=== PATIENT | female | born 1955 | race Two or more races ===

== ENCOUNTER 2019-04-21 19:41 | Inpatient (IN) | payer SELFPAY ==
[~2019-04-21] VITALS: Ht 157.5 cm; Wt 64.9 kg
[2019-04-21] MEDS ORDERED: SODIUM CHLORIDE 0.9% 1,000 ML IV ONE (21:42)
[2019-04-21 21:52] LABS: HEMATOCRIT. 26.6 % (36.0-48.0); HEMOGLOBIN. 8.9 g/dL (12.0-16.0); MEAN CORPUSCULAR HEMOGLOBIN 24.6 pg (28.0-32.0); MEAN CORPUSCULAR VOLUME 73.6 fL (81.0-99.0); MEAN PLATELET VOLUME 6.7 fl (7.4-10.4); PLATELET 294 x1000/uL (130-400); RED BLOOD CELL COUNT 3.62 mill/uL (4.2-5.4)
[2019-04-21 21:59] LABS: PROTHROMBIN TIME 10.1 sec (9.6-11.0)
[2019-04-21 22:15] LABS: CHLORIDE 99 mEq/L (98-107)
[2019-04-21] MEDS ORDERED: MORPHINE SULFATE 4 MG/ML CPJ (NOT FOR IM USE) IV STA (22:33)
[2019-04-21] MEDS ORDERED: ACETAMINOPHEN 325MG TABLET PO STA (22:33)
[2019-04-21] MEDS ORDERED: ONDANSETRON HCL 4MG/2ML INJ IV STA (22:33)
[2019-04-21] MEDS ORDERED: SODIUM CHLORIDE 0.9% 1000ML BAG (SEPSIS BOLUS) IV ONE (22:45)
[2019-04-21] MEDS ORDERED: PIPERACILLIN/TAZ 3.375G PREMIX 50 ML IV ONE (22:45)
[2019-04-21] MEDS ORDERED: VANCOMYCIN 1 G PREMIX 200 ML IV ONE (22:45)
[2019-04-21 22:48] LABS: PLATELET ESTIMATE NORMAL
[2019-04-22] VITALS (13 sets, daily range): BP systolic 83–118; BP diastolic 49–66
[2019-04-22 00:15] LABS: CLARITY URINE CLEAR (CLEAR); COLOR URINE DARK YELLOW (YELLOW); KETONES URINE 1+ (NEGATIVE); LEUKOCYTE ESTERASE URINE 1+ (NEGATIVE); NITRITE URINE NEGATIVE (NEGATIVE); OCCULT BLOOD URINE TRACE (NEGATIVE); PH URINE 5.5 (4.5-8.0); PROTEIN URINE 1+ (NEGATIVE); SPECIFIC GRAVITY URINE 1.022 (1.005-1.030)
[2019-04-22] MEDS ORDERED: SODIUM CHLORIDE 0.9% 1,000 ML IV ONE ×2 (00:26→02:13)
[2019-04-22] MEDS ORDERED: IOHEXOL-300 100 ML BOTTLE ONE (01:50)
[2019-04-22] MEDS ORDERED: CEFTRIAXONE 1 G PREMIX 50 ML IV SCH (04:00)
[2019-04-22] MEDS ORDERED: MORPHINE SULFATE 2 MG/ML CPJ (NOT FOR IM USE) IV PRN (07:30)
[2019-04-22] MEDS ORDERED: HYDROCODONE/ACETAMINOPHEN 5/325MG TABLET PO PRN (07:30)
[2019-04-22] MEDS: PIPERACILLIN/TAZ 3.375G PREMIX 50 ML IV SCH ×3 (09:11→21:36)
[2019-04-22] MEDS: SODIUM CHLORIDE 0.9% 1,000 ML IV SCH (12:44)
[2019-04-22 16:53] LABS: HEMATOCRIT 21.9 % (36.0-48.0); HEMOGLOBIN 7.1 g/dL (12.0-16.0); MEAN CORPUSCULAR HEMOGLOBIN 24.4 pg (28.0-32.0); MEAN CORPUSCULAR VOLUME 74.7 fL (81.0-99.0); PLATELET 180 x1000/uL (130-400); RED BLOOD CELL COUNT 2.93 mill/uL (4.2-5.4); RED CELL DISTRIBUTION WIDTH 16.1 % (11.6-14.6)
[2019-04-22 17:00] LABS: CHLORIDE 107 mEq/L (98-107)
[2019-04-23] VITALS (45 sets, daily range): BP systolic 71–151; BP diastolic 42–87
[2019-04-23] MEDS: ACETAMINOPHEN 325MG TABLET PO PRN ×2 (00:03→17:44)
[2019-04-23] MEDS: PIPERACILLIN/TAZ 3.375G PREMIX 50 ML IV SCH ×4 (03:24→20:37)
[2019-04-23] MEDS: SODIUM CHLORIDE 0.9% 1,000 ML IV SCH ×2 (03:25→08:21)
[2019-04-23] MEDS ORDERED: SODIUM CHLORIDE 0.9% 1,000 ML IV SCH (04:00)
[2019-04-23 09:24] LABS: CHLORIDE 112 mEq/L (98-107); MEAN CORPUSCULAR HEMOGLOBIN 24.3 pg (28.0-32.0); MEAN CORPUSCULAR VOLUME 75.1 fL (81.0-99.0); PLATELET 165 x1000/uL (130-400); RED BLOOD CELL COUNT 2.86 mill/uL (4.2-5.4); RED CELL DISTRIBUTION WIDTH 16.5 % (11.6-14.6)
[2019-04-23 09:45] LABS: HEMOGLOBIN. 6.9 g/dL (12.0-16.0)
[2019-04-23] MEDS ORDERED: POTASSIUM CHLORIDE 20MEQ TABLET SR PO NR (09:45)
[2019-04-23 09:46] LABS: HEMATOCRIT. 21.5 % (36.0-48.0)
[2019-04-23] MEDS ORDERED: GUAIFENESIN-DM 200MG-20MG/10ML UDC PO PRN (10:00)
[2019-04-23 10:57] LABS: PLATELET ESTIMATE NORMAL
[2019-04-24] VITALS (11 sets, daily range): BP systolic 95–134; BP diastolic 48–76
[2019-04-24] MEDS: ACETAMINOPHEN 325MG TABLET PO PRN ×2 (00:32→10:13)
[2019-04-24] MEDS: SODIUM CHLORIDE 0.9% 1,000 ML IV SCH ×2 (03:26→21:51)
[2019-04-24] MEDS: PIPERACILLIN/TAZ 3.375G PREMIX 50 ML IV SCH ×3 (03:26→14:49)
[2019-04-24] MEDS ORDERED: SODIUM CHLORIDE 0.9% 1,000 ML IV SCH (04:00)
[2019-04-24 06:03] LABS: MEAN CORPUSCULAR HEMOGLOBIN 24.3 pg (28.0-32.0); MEAN CORPUSCULAR VOLUME 73.5 fL (81.0-99.0); PLATELET 130 x1000/uL (130-400); RED BLOOD CELL COUNT 2.41 mill/uL (4.2-5.4)
[2019-04-24 06:21] LABS: CHLORIDE 110 mEq/L (98-107)
[2019-04-24] MEDS: BUDESONIDE 0.5MG/2ML NEB HHN SCH ×3 (08:06→20:51)
[2019-04-24] MEDS: IPRATROPIUM/ALBUTEROL 0.5-3(2.5)MG/3ML NEB HHN PRN (08:07)
[2019-04-24 08:12] LABS: HEMATOCRIT. 17.7 % (36.0-48.0); HEMOGLOBIN. 5.9 g/dL (12.0-16.0)
[2019-04-24] MEDS ORDERED: DIPHENHYDRAMINE 50MG/ML VIAL IV PRN (08:45)
[2019-04-24 11:15] LABS: TOTAL IRON BINDING CAPACITY 169 ug/dL (250-450)
[2019-04-24 15:57] LABS: HEMATOCRIT 22.4 % (36.0-48.0); HEMOGLOBIN 7.5 g/dL (12.0-16.0); MEAN CORPUSCULAR HEMOGLOBIN 25.2 pg (28.0-32.0); MEAN CORPUSCULAR VOLUME 75.1 fL (81.0-99.0); PLATELET 151 x1000/uL (130-400); RED BLOOD CELL COUNT 2.99 mill/uL (4.2-5.4); RED CELL DISTRIBUTION WIDTH 17.2 % (11.6-14.6)
[2019-04-24 18:25] LABS: PLATELET ESTIMATE NORMAL
[2019-04-24] MEDS ORDERED: FILGRASTIM-TBO 480 MCG/0.8 ML SYRINGE SQ SCH (21:00)
[2019-04-25] VITALS (7 sets, daily range): BP systolic 106–137; BP diastolic 55–78
[2019-04-25 05:14] LABS: HIV SCREEN 4G Non Reactive (Non Reactive)
[2019-04-25] MEDS: SODIUM CHLORIDE 0.9% 1,000 ML IV SCH ×2 (05:31→19:30)
[2019-04-25 06:44] LABS: CHLORIDE 108 mEq/L (98-107)
[2019-04-25 08:27] LABS: HEMATOCRIT. 21.4 % (36.0-48.0); HEMOGLOBIN. 7.1 g/dL (12.0-16.0); MEAN PLATELET VOLUME 7.7 fl (7.4-10.4); PLATELET 134 x1000/uL (130-400); RED BLOOD CELL COUNT 2.86 mill/uL (4.2-5.4)
[2019-04-25] MEDS: IPRATROPIUM/ALBUTEROL 0.5-3(2.5)MG/3ML NEB HHN PRN (09:08)
[2019-04-25 09:52] LABS: PLATELET ESTIMATE NORMAL
[2019-04-25] MEDS: ONDANSETRON HCL 4MG/2ML INJ IV PRN (13:42)
[2019-04-25] MEDS: CEFEPIME 1,000 MG in DEXTROSE 5% WATER 50 ML IV SCH (14:52)
[2019-04-25] MEDS ORDERED: METOCLOPRAMIDE HCL 10MG/2ML VIAL IV PRN (16:15)
[2019-04-25] MEDS: ACETAMINOPHEN 325MG TABLET PO PRN (20:02)
[2019-04-25] MEDS ORDERED: FILGRASTIM-TBO 480 MCG/0.8 ML SYRINGE SQ SCH (21:00)
[2019-04-25] MEDS ORDERED: FILGRASTIM 300 MCG/ML VIAL SUBCUT SCH (21:00)
[2019-04-25] MEDS: BUDESONIDE 0.5MG/2ML NEB HHN SCH (21:40)
[2019-04-26 00:02] VITALS: BP 133/72
[2019-04-26] MEDS: CEFEPIME 1,000 MG in DEXTROSE 5% WATER 50 ML IV SCH ×2 (02:42→14:21)
[2019-04-26 04:00] VITALS: BP 127/70
[2019-04-26 06:10] LABS: HEMATOCRIT. 22.6 % (36.0-48.0); HEMOGLOBIN. 7.9 g/dL (12.0-16.0); MEAN CORPUSCULAR HEMOGLOBIN 26.2 pg (28.0-32.0); MEAN CORPUSCULAR VOLUME 75.3 fL (81.0-99.0); MEAN PLATELET VOLUME 7.7 fl (7.4-10.4); PLATELET 141 x1000/uL (130-400); RED CELL DISTRIBUTION WIDTH 16.8 % (11.6-14.6)
[2019-04-26 06:22] LABS: CHLORIDE 109 mEq/L (98-107)
[2019-04-26 08:00] VITALS: BP 132/68
[2019-04-26] MEDS: SODIUM CHLORIDE 0.9% 1,000 ML IV SCH ×2 (08:20→20:47)
[2019-04-26] MEDS ORDERED: POTASSIUM CHLORIDE 20MEQ TABLET SR PO NR (09:45)
[2019-04-26] MEDS: BUDESONIDE 0.5MG/2ML NEB HHN SCH ×2 (10:00→20:13)
[2019-04-26] MEDS: IPRATROPIUM/ALBUTEROL 0.5-3(2.5)MG/3ML NEB HHN PRN ×2 (10:00→20:13)
[2019-04-26 12:00] VITALS: BP_SYST 121; BP_DIAS 63; BP_DIAS 96
[2019-04-26 13:41] LABS: PLATELET ESTIMATE NORMAL
[2019-04-26 16:00] VITALS: BP 109/59
[2019-04-26 20:00] VITALS: BP 131/78
[2019-04-26] MEDS: MORPHINE SULFATE 15MG TABLET SR PO SCH (20:45)
[2019-04-26] MEDS ORDERED: FILGRASTIM-TBO 480 MCG/0.8 ML SYRINGE SQ SCH (21:00)
[2019-04-27] VITALS: BP 129/64
[2019-04-27] MEDS ORDERED: FILGRASTIM-TBO 480 MCG/0.8 ML SYRINGE SQ SCH
[2019-04-27] MEDS: CEFEPIME 1,000 MG in DEXTROSE 5% WATER 50 ML IV SCH ×2 (02:29→14:30)
[2019-04-27 04:00] VITALS: BP 121/60
[2019-04-27 06:47] LABS: HEMOGLOBIN. 7.6 g/dL (12.0-16.0); MEAN CORPUSCULAR HEMOGLOBIN 25.7 pg (28.0-32.0); MEAN CORPUSCULAR VOLUME 74.7 fL (81.0-99.0); MEAN PLATELET VOLUME 7.3 fl (7.4-10.4); PLATELET 134 x1000/uL (130-400); RED BLOOD CELL COUNT 2.95 mill/uL (4.2-5.4); RED CELL DISTRIBUTION WIDTH 17.6 % (11.6-14.6)
[2019-04-27 06:58] LABS: CHLORIDE 106 mEq/L (98-107)
[2019-04-27 08:00] VITALS: BP 127/71
[2019-04-27] MEDS: ONDANSETRON HCL 4MG/2ML INJ IV PRN (08:20)
[2019-04-27] MEDS: MORPHINE SULFATE 15MG TABLET SR PO SCH ×2 (08:25→21:00)
[2019-04-27] MEDS: SODIUM CHLORIDE 0.9% 1,000 ML IV SCH (11:30)
[2019-04-27] MEDS: ACETAMINOPHEN 325MG TABLET PO PRN (11:46)
[2019-04-27 12:00] VITALS: BP 123/74
[2019-04-27 13:24] LABS: NUCLEATED RED BLOOD CELLS 2 /100 WBC
[2019-04-27 13:25] LABS: PLATELET ESTIMATE NORMAL
[2019-04-27] MEDS ORDERED: MORPHINE SULFATE 2 MG/ML CPJ (NOT FOR IM USE) IV PRN (15:15)
[2019-04-27 16:00] VITALS: BP 111/65
[2019-04-27 20:00] VITALS: BP 126/72
[2019-04-28] VITALS: BP 147/72
[2019-04-28] MEDS: SODIUM CHLORIDE 0.9% 1,000 ML IV SCH ×2 (00:43→13:38)
[2019-04-28] MEDS: CEFEPIME 1,000 MG in DEXTROSE 5% WATER 50 ML IV SCH ×2 (03:22→14:55)
[2019-04-28 04:00] VITALS: BP 138/76
[2019-04-28] MEDS: ACETAMINOPHEN 325MG TABLET PO PRN ×2 (04:11→17:31)
[2019-04-28 06:16] LABS: HEMATOCRIT. 22.3 % (36.0-48.0); HEMOGLOBIN. 7.5 g/dL (12.0-16.0); MEAN CORPUSCULAR HEMOGLOBIN 25.2 pg (28.0-32.0); MEAN PLATELET VOLUME 7.9 fl (7.4-10.4); PLATELET 178 x1000/uL (130-400); RED BLOOD CELL COUNT 2.98 mill/uL (4.2-5.4); RED CELL DISTRIBUTION WIDTH 17.4 % (11.6-14.6)
[2019-04-28 07:29] LABS: CHLORIDE 104 mEq/L (98-107)
[2019-04-28 08:00] VITALS: BP 106/58
[2019-04-28] MEDS: MORPHINE SULFATE 15MG TABLET SR PO SCH ×2 (09:00→21:00)
[2019-04-28 12:00] VITALS: BP 111/70
[2019-04-28 13:04] LABS: NUCLEATED RED BLOOD CELLS 1 /100 WBC
[2019-04-28 13:05] LABS: PLATELET ESTIMATE NORMAL
[2019-04-28 16:00] VITALS: BP 117/60
[2019-04-28 20:00] VITALS: BP 102/52
[2019-04-29] VITALS: BP 118/52
[2019-04-29] MEDS: CEFEPIME 1,000 MG in DEXTROSE 5% WATER 50 ML IV SCH (02:40)
[2019-04-29] MEDS: SODIUM CHLORIDE 0.9% 1,000 ML IV SCH (02:40)
[2019-04-29 07:36] LABS: HEMATOCRIT. 23.7 % (36.0-48.0); MEAN CORPUSCULAR HEMOGLOBIN 25.3 pg (28.0-32.0); MEAN CORPUSCULAR VOLUME 75.6 fL (81.0-99.0); MEAN PLATELET VOLUME 7.9 fl (7.4-10.4); PLATELET 217 x1000/uL (130-400); RED BLOOD CELL COUNT 3.14 mill/uL (4.2-5.4); RED CELL DISTRIBUTION WIDTH 17.8 % (11.6-14.6)
[2019-04-29 08:00] VITALS: BP 108/58
[2019-04-29 08:11] LABS: CHLORIDE 104 mEq/L (98-107)
[2019-04-29] MEDS: ACETAMINOPHEN 325MG TABLET PO PRN (08:28)
[2019-04-29] MEDS: MORPHINE SULFATE 15MG TABLET SR PO SCH (09:00)
[2019-04-29 12:22] VITALS: BP 106/51
[2019-04-29] MEDS ORDERED: LACTULOSE 20G/30ML UDC PO NR (13:30)
[2019-04-29 14:38] VITALS: BP 106/51
[2019-04-29 15:43] LABS: PLATELET ESTIMATE NORMAL
== END 2019-04-29 15:15 | disposition home or self-care (01) | DRG 720 ==
LOC: ER 19:41 → 5EST 04-22 00:30 → EDBD 04-22 00:30 → EDBEDREQ 04-22 00:31 → EDBEDREQTM 04-22 00:31 → EDBEDREQDT 04-22 00:31 → ENRESERV 04-22 00:59 → MICUSO 04-23 04:56 → 8WST 04-23 22:30
PROVIDERS: ADMIT Internal Medicine; ATTEND Internal Medicine
PROC: 30233N1 Transfusion of Nonautologous Red Blood Cells into Peripheral Vein, Percutaneous Approach (ICD-10-PCS; principal; 2019-04-23)
DX: A41.9 Sepsis, unspecified organism (principal); R65.21 Severe sepsis with septic shock; E43 Unspecified severe protein-calorie malnutrition; D61.818 Other pancytopenia; C78.01 Secondary malignant neoplasm of right lung; C78.02 Secondary malignant neoplasm of left lung; E11.9 Type 2 diabetes mellitus without complications; C64.9 Malignant neoplasm of unspecified kidney, except renal pelvis; E87.1 Hypo-osmolality and hyponatremia; N39.0 Urinary tract infection, site not specified; Z85.528 Personal history of other malignant neoplasm of kidney; Z90.710 Acquired absence of both cervix and uterus; Z93.6 Other artificial openings of urinary tract status; R50.81 Fever presenting with conditions classified elsewhere; Z68.26 Body mass index [BMI] 26.0-26.9, adult; Z79.84 Long term (current) use of oral hypoglycemic drugs
CPT/HCPCS: 36415; 71045; 74021; 74177; 80048; 82270; 82728; 83540; 83550; 83605; 84145; 84484; 85027; 86078; 86850; 86900; 86920; 87077; 87186; 87389; 93005; 93970; 94640; 96365; 99291; C1893; J0692; J0696; J1200; J1442; J2270; J2405; J2543; J3370; J7030; J7050; J7060; J7620; J7626; P9016; P9021; Q9967

== ENCOUNTER 2019-06-18 17:41 | Inpatient (IN) | payer MEDICAID ==
[~2019-06-18] VITALS: Ht 165.1 cm; Wt 56.7 kg
[2019-06-18 18:33] LABS: HEMATOCRIT. 30.5 % (36.0-48.0); HEMOGLOBIN. 10.1 g/dL (12.0-16.0); MEAN CORPUSCULAR HEMOGLOBIN 26.8 pg (28.0-32.0); MEAN CORPUSCULAR VOLUME 81.5 fL (81.0-99.0); RED BLOOD CELL COUNT 3.75 mill/uL (4.2-5.4); RED CELL DISTRIBUTION WIDTH 25.5 % (11.6-14.6)
[2019-06-18 18:36] LABS: CHLORIDE 101 mEq/L (98-107)
[2019-06-18 19:07] LABS: MEAN PLATELET VOLUME 7.4 fl (7.4-10.4); PLATELET 232 x1000/uL (130-400)
[2019-06-18 19:09] LABS: PLATELET ESTIMATE NORMAL
[2019-06-18] MEDS ORDERED: IOHEXOL-350 100 ML BOTTLE ONE (19:28)
[2019-06-18 22:49] VITALS: BP 101/81
[2019-06-18 23:16] VITALS: BP 101/81
[2019-06-18] MEDS ORDERED: MORPHINE SULFATE 2 MG/ML CPJ (NOT FOR IM USE) IV PRN (23:45)
[2019-06-18] MEDS ORDERED: IPRATROPIUM/ALBUTEROL 0.5-3(2.5)MG/3ML NEB HHN PRN (23:45)
[2019-06-18] MEDS ORDERED: ONDANSETRON HCL 4MG/2ML INJ IV PRN (23:45)
[2019-06-18] MEDS ORDERED: ACETAMINOPHEN 325MG TABLET PO PRN (23:45)
[2019-06-19 04:00] VITALS: BP 98/64
[2019-06-19 06:09] LABS: HEMATOCRIT. 27.2 % (36.0-48.0); HEMOGLOBIN. 8.9 g/dL (12.0-16.0); MEAN CORPUSCULAR HEMOGLOBIN 26.7 pg (28.0-32.0); MEAN CORPUSCULAR VOLUME 81.9 fL (81.0-99.0); MEAN PLATELET VOLUME 7.6 fl (7.4-10.4); PLATELET 220 x1000/uL (130-400); RED BLOOD CELL COUNT 3.32 mill/uL (4.2-5.4); RED CELL DISTRIBUTION WIDTH 25.4 % (11.6-14.6)
[2019-06-19 06:26] LABS: CHLORIDE 102 mEq/L (98-107)
[2019-06-19 08:00] VITALS: BP 93/56
[2019-06-19] MEDS ORDERED: HYDROCODONE/ACETAMINOPHEN 5/325MG TABLET PO PRN (08:30)
[2019-06-19] MEDS ORDERED: ENOXAPARIN 40MG/0.4ML SYR SUBCUT SCH (09:00)
[2019-06-19] MEDS: MORPHINE SULFATE 15MG TABLET SR PO SCH ×2 (10:48→21:00)
[2019-06-19 12:00] VITALS: BP 98/65
[2019-06-19 15:17] LABS: PLATELET ESTIMATE NORMAL
[2019-06-19 16:00] VITALS: BP 98/63
[2019-06-19 20:00] VITALS: BP 103/63
[2019-06-20] VITALS: BP 94/64
[2019-06-20 04:00] VITALS: BP 97/57
[2019-06-20 07:39] LABS: HEMATOCRIT. 27.7 % (36.0-48.0); HEMOGLOBIN. 9.1 g/dL (12.0-16.0); MEAN CORPUSCULAR HEMOGLOBIN 26.8 pg (28.0-32.0); MEAN CORPUSCULAR VOLUME 81.8 fL (81.0-99.0); MEAN PLATELET VOLUME 7.3 fl (7.4-10.4); PLATELET 204 x1000/uL (130-400); RED BLOOD CELL COUNT 3.38 mill/uL (4.2-5.4); RED CELL DISTRIBUTION WIDTH 25.2 % (11.6-14.6)
[2019-06-20 07:41] LABS: CHLORIDE 101 mEq/L (98-107)
[2019-06-20 08:00] VITALS: BP 92/60
[2019-06-20] MEDS: MORPHINE SULFATE 15MG TABLET SR PO SCH ×2 (09:33→21:01)
[2019-06-20 12:00] VITALS: BP 91/56
[2019-06-20 15:03] LABS: CLARITY URINE CLOUDY (CLEAR); COLOR URINE ORANGE (YELLOW); KETONES URINE 1+ (NEGATIVE); LEUKOCYTE ESTERASE URINE TRACE (NEGATIVE); NITRITE URINE NEGATIVE (NEGATIVE); OCCULT BLOOD URINE 2+ (NEGATIVE); PROTEIN URINE 1+ (NEGATIVE); SPECIFIC GRAVITY URINE 1.026 (1.005-1.030); UROBILINOGEN URINE 0.2 E.U./dL (0.2-1.0)
[2019-06-20 16:00] VITALS: BP 96/71
[2019-06-20 20:00] VITALS: BP 119/67
[2019-06-20 20:29] LABS: PLATELET ESTIMATE NORMAL
[2019-06-21] VITALS: BP 91/59
[2019-06-21 04:00] VITALS: BP 94/63
[2019-06-21 08:00] VITALS: BP 100/57
[2019-06-21] MEDS: MORPHINE SULFATE 15MG TABLET SR PO SCH (08:59)
[2019-06-21 10:46] VITALS: BP 100/57
== END 2019-06-21 12:25 | disposition home or self-care (01) | DRG 136 ==
LOC: ER 17:41 → EDBEDREQ 19:58 → EDBEDREQTM 19:58 → 7WST 20:31 → EDBEDREQ 20:42 → EDBEDREQTM 20:42 → ENRESERV 21:16
PROVIDERS: ADMIT Internal Medicine; ATTEND Internal Medicine
PROC: 0W993ZZ Drainage of Right Pleural Cavity, Percutaneous Approach (ICD-10-PCS; principal; 2019-06-19)
DX: C78.00 Secondary malignant neoplasm of unspecified lung (principal); J96.01 Acute respiratory failure with hypoxia; E43 Unspecified severe protein-calorie malnutrition; J91.0 Malignant pleural effusion; C79.31 Secondary malignant neoplasm of brain; R13.10 Dysphagia, unspecified; E87.1 Hypo-osmolality and hyponatremia; C64.9 Malignant neoplasm of unspecified kidney, except renal pelvis; Z93.6 Other artificial openings of urinary tract status; D64.9 Anemia, unspecified; R47.02 Dysphasia; R59.0 Localized enlarged lymph nodes; Z60.2 Problems related to living alone; R00.0 Tachycardia, unspecified; Z92.21 Personal history of antineoplastic chemotherapy; Z59.0 Homelessness; Z90.710 Acquired absence of both cervix and uterus; Z92.3 Personal history of irradiation; Z87.440 Personal history of urinary (tract) infections; Z68.20 Body mass index [BMI] 20.0-20.9, adult
CPT/HCPCS: 32555; 36415; 71045; 71275; 80048; 81003; 82040; 83615; 83880; 84484; 88108; 88312; 92610; 93005; 99285; J2270; Q9967

== ENCOUNTER 2019-06-23 21:32 | Inpatient (IN) | payer MEDICAID ==
[~2019-06-23] VITALS: Ht 162.6 cm; Wt 56.2 kg
[2019-06-23 23:04] LABS: CHLORIDE 101 mEq/L (98-107); HEMATOCRIT. 30.1 % (36.0-48.0); HEMOGLOBIN. 9.9 g/dL (12.0-16.0); MEAN CORPUSCULAR HEMOGLOBIN 26.8 pg (28.0-32.0); MEAN CORPUSCULAR VOLUME 81.4 fL (81.0-99.0); MEAN PLATELET VOLUME 7.7 fl (7.4-10.4); PLATELET 173 x1000/uL (130-400); RED CELL DISTRIBUTION WIDTH 24.5 % (11.6-14.6)
[2019-06-23 23:17] LABS: PLATELET ESTIMATE NORMAL
[2019-06-24] MEDS ORDERED: SODIUM CHLORIDE 0.9% 500 ML IV ONE (00:45)
[2019-06-24] MEDS ORDERED: AZITHROMYCIN 500 MG in DEXT 5% WATER 250 ML IV SCH (00:45)
[2019-06-24] MEDS ORDERED: PIPERACILLIN SODIUM/TAZOBACTAM 4.5 G in DEXT 5% WATER 100 ML IV SCH (00:45)
[2019-06-24] MEDS ORDERED: VANCOMYCIN 1 G PREMIX 200 ML IV SCH (00:45)
[2019-06-24] MEDS ORDERED: GUAIFENESIN 200MG/10ML SUGAR FREE UDC PO PRN (07:45)
[2019-06-24] MEDS ORDERED: MAGNESIUM/ALUMINUM HYDROXIDE/SIMETHICONE 30ML UDC PO PRN (07:45)
[2019-06-24] MEDS ORDERED: DIPHENHYDRAMINE 50MG/ML VIAL IV PRN (07:45)
[2019-06-24] MEDS ORDERED: IPRATROPIUM/ALBUTEROL 0.5-3(2.5)MG/3ML NEB HHN PRN (07:45)
[2019-06-24] MEDS ORDERED: HYDROCODONE/ACETAMINOPHEN 5/325MG TABLET PO PRN (07:45)
[2019-06-24] MEDS ORDERED: CLONIDINE 0.1MG TABLET PO PRN (07:45)
[2019-06-24] MEDS ORDERED: DOCUSATE SODIUM 100MG CAPSULE PO PRN (07:45)
[2019-06-24] MEDS ORDERED: MORPHINE SULFATE 2 MG/ML CPJ (NOT FOR IM USE) IV PRN (07:45)
[2019-06-24] MEDS ORDERED: ONDANSETRON HCL 4MG/2ML INJ IV PRN (07:45)
[2019-06-24 09:29] LABS: PHOSPHORUS 3.1 mg/dL (2.5-4.9)
[2019-06-24 10:06] VITALS: BP 101/66
[2019-06-24 13:12] VITALS: BP 101/75
[2019-06-24 16:47] VITALS: BP 120/65
[2019-06-24 20:00] VITALS: BP 110/67
[2019-06-25] VITALS: BP 106/63
[2019-06-25 04:00] VITALS: BP 130/79
[2019-06-25 07:28] LABS: HEMATOCRIT. 27.7 % (36.0-48.0); MEAN CORPUSCULAR HEMOGLOBIN 26.7 pg (28.0-32.0); MEAN CORPUSCULAR VOLUME 82.1 fL (81.0-99.0); MEAN PLATELET VOLUME 7.1 fl (7.4-10.4); PLATELET 172 x1000/uL (130-400); RED BLOOD CELL COUNT 3.38 mill/uL (4.2-5.4); RED CELL DISTRIBUTION WIDTH 24.2 % (11.6-14.6)
[2019-06-25 07:36] LABS: CHLORIDE 103 mEq/L (98-107)
[2019-06-25 07:45] LABS: HDL CHOLESTEROL 28 mg/dL (40-59)
[2019-06-25 07:46] LABS: LDL CHOLESTEROL 97 mg/dL (5-100)
[2019-06-25 09:00] VITALS: BP 98/65
[2019-06-25 09:42] LABS: PLATELET ESTIMATE NORMAL
[2019-06-25 11:32] VITALS: BP 100/44
[2019-06-25 16:11] VITALS: BP 113/81
[2019-06-25 20:00] VITALS: BP 115/63
[2019-06-26] VITALS: BP 93/54
[2019-06-26 04:00] VITALS: BP 100/67
[2019-06-26 06:42] LABS: CHLORIDE 103 mEq/L (98-107)
[2019-06-26 06:50] LABS: HEMATOCRIT. 27.7 % (36.0-48.0); HEMOGLOBIN. 9.1 g/dL (12.0-16.0); MEAN CORPUSCULAR HEMOGLOBIN 27.1 pg (28.0-32.0); MEAN CORPUSCULAR VOLUME 82.1 fL (81.0-99.0); MEAN PLATELET VOLUME 7.5 fl (7.4-10.4); PLATELET 196 x1000/uL (130-400); RED BLOOD CELL COUNT 3.37 mill/uL (4.2-5.4); RED CELL DISTRIBUTION WIDTH 23.2 % (11.6-14.6)
[2019-06-26 08:00] VITALS: BP 109/74
[2019-06-26] MEDS ORDERED: SODIUM BICARBONATE 4% (2.4MEQ) 5ML VIAL IV ONE (09:20)
[2019-06-26 10:35] LABS: PLATELET ESTIMATE NORMAL
[2019-06-26] MEDS ORDERED: ONDANSETRON HCL 4MG/2ML INJ IV PRN (11:00)
[2019-06-26 12:00] VITALS: BP 106/59
[2019-06-26] MEDS ORDERED: SODIUM CHLORIDE 0.9% 250 ML IV ONE (14:15)
[2019-06-26] MEDS: KETOROLAC 15MG/ML VIAL IV PRN ×2 (14:28→21:19)
[2019-06-26 16:00] VITALS: BP 93/52
[2019-06-26 20:00] VITALS: BP 94/55
[2019-06-27] VITALS: BP 93/54
[2019-06-27 04:00] VITALS: BP 96/58
[2019-06-27 06:58] LABS: HEMATOCRIT. 26.9 % (36.0-48.0); HEMOGLOBIN. 8.9 g/dL (12.0-16.0); MEAN CORPUSCULAR VOLUME 81.7 fL (81.0-99.0); MEAN PLATELET VOLUME 7.6 fl (7.4-10.4); PLATELET 202 x1000/uL (130-400); RED BLOOD CELL COUNT 3.29 mill/uL (4.2-5.4); RED CELL DISTRIBUTION WIDTH 22.9 % (11.6-14.6)
[2019-06-27 07:15] LABS: CHLORIDE 106 mEq/L (98-107)
[2019-06-27 08:00] VITALS: BP 95/57
[2019-06-27 12:00] VITALS: BP 100/78
[2019-06-27 16:40] VITALS: BP 98/59
[2019-06-27 16:59] LABS: BG BASE EXCESS -0.8 mmol/L (-2.0-2.0); BG CARBOXYHEMOGLOBIN 0.3 % (0.5-1.5); BG DEOXYHEMOGLOBIN 11.2 % (0.0-5.0); BG FRACTION INSPIRED OXYGEN 21; BG HCO3 ACT 21.9 mmol/L (22.0-26.0); BG METHEMOGLOBIN 0.2 % (0.0-1.5); BG OXYGEN SATURATION 88.7 % (92.0-98.5); BG OXYHEMOGLOBIN 88.3 % (94.0-97.0); BG PCO2 29.5 mmHg (35.0-45.0); BG PH 7.489 (7.350-7.450); BG PO2 56.7 mmHg (75.0-100.0); BG SAMPLE SITE RIGHT BRACHIAL; BG TOTAL HEMOGLOBIN 9.9 g/dL (12.0-18.0); BG VENT MODE ROOM AIR
[2019-06-27 17:25] LABS: PLATELET ESTIMATE NORMAL
[2019-06-27 20:00] VITALS: BP 97/61
[2019-06-28] VITALS (7 sets, daily range): BP systolic 90–104; BP diastolic 56–67
[2019-06-28] MEDS: ACETAMINOPHEN 325MG TABLET PO PRN ×2 (00:06→17:33)
[2019-06-28] MEDS: ACETAMINOPHEN 650MG/20.3ML UDC PO PRN (23:19)
[2019-06-29] VITALS: BP 95/58
[2019-06-29 04:00] VITALS: BP 96/65
[2019-06-29 05:25] LABS: CLARITY URINE CLOUDY (CLEAR); COLOR URINE YELLOW (YELLOW); KETONES URINE NEGATIVE (NEGATIVE); LEUKOCYTE ESTERASE URINE TRACE (NEGATIVE); NITRITE URINE NEGATIVE (NEGATIVE); OCCULT BLOOD URINE 1+ (NEGATIVE); PH URINE >=9.0 (4.5-8.0); PROTEIN URINE 3+ (NEGATIVE); SPECIFIC GRAVITY URINE 1.011 (1.005-1.030); UROBILINOGEN URINE 0.2 E.U./dL (0.2-1.0)
[2019-06-29 07:57] VITALS: BP 98/59
[2019-06-29] MEDS: ACETAMINOPHEN 650MG/20.3ML UDC PO PRN (09:44)
[2019-06-29 12:08] VITALS: BP 99/50
[2019-06-29 15:41] VITALS: BP 99/54
[2019-06-29 20:13] VITALS: BP 106/71
[2019-06-30 00:55] VITALS: BP 101/63
[2019-06-30 04:40] VITALS: BP 107/72
[2019-06-30 08:00] VITALS: BP 105/70
[2019-06-30 12:00] VITALS: BP 88/52
[2019-06-30 16:00] VITALS: BP 96/65
[2019-06-30 20:00] VITALS: BP 101/67
[2019-07-01] VITALS: BP 106/67
[2019-07-01 04:00] VITALS: BP 104/71
[2019-07-01 08:00] VITALS: BP 162/57
[2019-07-01 12:00] VITALS: BP 99/69
[2019-07-01 13:23] VITALS: BP 100/69
[2019-07-01 16:00] VITALS: BP 107/59
== END 2019-07-01 18:09 | disposition hospice, home (50) | DRG 461 ==
LOC: ER 21:39 → 7WST 06-24 00:45 → EDBEDREQ 06-24 00:48 → EDBEDREQSVC 06-24 00:48 → EDBEDREQTM 06-24 00:48 → EDBEDREQDT 06-24 00:48 → ENRESERV 06-24 06:38 → CANRESERV 06-24 06:38 → EDBEDREQSVC 06-24 07:48 → ENRESERV 06-24 08:07
PROVIDERS: ADMIT Internal Medicine; ATTEND Internal Medicine
PROC: 0W993ZZ Drainage of Right Pleural Cavity, Percutaneous Approach (ICD-10-PCS; principal; 2019-06-26)
DX: C64.9 Malignant neoplasm of unspecified kidney, except renal pelvis (principal); J96.00 Acute respiratory failure, unspecified whether with hypoxia or hypercapnia; J91.8 Pleural effusion in other conditions classified elsewhere; C78.00 Secondary malignant neoplasm of unspecified lung; C79.31 Secondary malignant neoplasm of brain; E46 Unspecified protein-calorie malnutrition; R13.10 Dysphagia, unspecified; Z93.6 Other artificial openings of urinary tract status; D64.9 Anemia, unspecified; J98.11 Atelectasis; I51.7 Cardiomegaly; K52.9 Noninfective gastroenteritis and colitis, unspecified; Z66 Do not resuscitate; Z90.710 Acquired absence of both cervix and uterus; Z68.21 Body mass index [BMI] 21.0-21.9, adult; Z85.528 Personal history of other malignant neoplasm of kidney
CPT/HCPCS: 32555; 36415; 36600; 71045; 76604; 80048; 80061; 81003; 82375; 82805; 83735; 83880; 84100; 84443; 84484; 92610; 93005; 93970; 94640; 96365; 97116; 97162; 97530; 97535; 99291; A6261; J0456; J1885; J2270; J2543; J3370; J3490; J7040; J7060; J7620